=== PATIENT | male | born 1975 | race Two or more races ===

== ENCOUNTER 2022-01-13 12:25 | Inpatient (IN) ==
[2022-01-13 14:57] LABS: BASOPHILS % (AUTO) 0.3 % (0.2-1.0); EOSINOPHILS # (AUTO) 0.1 x10^3/uL (0.0-0.2); EOSINOPHILS % (AUTO) 0.9 % (0.9-2.9); HEMATOCRIT 38.5 % (42.0-54.0); HEMOGLOBIN 13.4 g/dL (13.5-18.0); LYMPHOCYTES % (AUTO) 6.6 % (21.0-51.0); MEAN CORPUSCULAR HEMOGLOBIN 31.6 pg (27.0-34.0); MEAN CORPUSCULAR HGB CONC 34.9 g/dL (33.0-35.0); MEAN CORPUSCULAR VOLUME 90.7 fL (80.0-100.0); MEAN PLATELET VOLUME 10.3 fL (7.4-11.0); MONOCYTES # (AUTO) 1.5 x10^3/uL (0.3-0.8); MONOCYTES % (AUTO) 9.8 % (0.0-13.0); NEUTROPHILS # (AUTO) 12.5 x10^3/uL (2.2-4.8); NEUTROPHILS % (AUTO) 82.4 % (42.0-75.0); RED BLOOD COUNT 4.25 X10^6/uL (4.7-6.0); RED CELL DISTRIBUTION WIDTH 12.6 % (11.6-16.5); WHITE BLOOD COUNT 15.2 X10^3/uL (3.6-10.0)
[2022-01-13 15:09] LABS: ALANINE AMINOTRANSFERASE 38 Units/L (12-78); ALBUMIN 3.1 g/dL (3.4-5.0); ALKALINE PHOSPHATASE 106 Units/L (46-116); ASPARTATE AMINO TRANSFERASE 23 Units/L (15-37); BLOOD UREA NITROGEN 12 mg/dL (7-18); CALCIUM 8.3 mg/dL (8.5-10.1); CARBON DIOXIDE 25.5 mmol/L (21-32); CHLORIDE 98 mmol/L (98-107); CREATININE 1.06 mg/dL (0.70-1.30); SODIUM 134 mmol/L (136-145); TOTAL PROTEIN 7.5 g/dL (6.4-8.2); eGFR NON BLACK RACES > 60 (>60)
[2022-01-13] MEDS ORDERED: NS 1,000 ML IV 1,000 ML ONE (15:17)
[2022-01-13] MEDS: ROCEPHIN VIAL 1 GRAM 1 G in NS 100 ML IV 100 ML IV SCH (15:38)
[2022-01-13] MEDS: MORPHINE SULFATE INJ 2 MG INJ IVP PRN (15:39)
[2022-01-13] MEDS: CIPRO IV 400 MG PREMIX* 400 MG/200 ML IV.SOLN. IV SCH ×2 (16:05→21:35)
[2022-01-13] MEDS: TORADOL 15 MG VIAL IVP PRN (17:26)
--- NOTE | 2022-01-13 18:12 | DR.H&P ---
H&P - History & Physical for Day of: H&P Date: 01/13/22 - Chief Complaint Chief Complaint: FEVER, PAIN, REDNESS SWELLING TO BUTTOCKS - History of Present Illness History of Present Illness: PT IS 46 HM ADMITTED WITH CELLULITIS TO PERIANAL TISSUE. PT STARTED WITH PAIN TO BUTTOCKS ON MONDAY WITH INCREASED REDNESS AND PAIN. PT WAS SEEN IN OFFICE ON MONDAY AND RECEIVED IM ROCEPHIN AND PO CIPRO. PT WAS SEEN IN ER DUE TO FEVER >102 AND WAS GIVEN RX FOR ADDITIONAL ANTIBIOTICS AND NORCO FOR PAIN, WHICH HAS NOT IMPROVED SYMPTOMS. PT HAS NO PMH OF HTN, DM OR CAD. PT ADMITTED FOR TREATMENT OF ACUTE ILLNESS AND SURGICAL CONSULT. - Past Medical History Past Medical History: denies: Coronary Artery Disease, Diabetes, Hypertension - Past Surgical History Surgical History: Ortho Surgery, Other - Family History Family Medical History: Diabetes Mellitus, Hypertension - Social History Does patient currently use any type of tobacco product: Yes Have you used tobacco products in the last 12 months: Yes Type of Tobacco Use: Cigarettes Does any household member use tobacco: Yes Alcohol Use: DAILY Drug Use: None - Medications Home Medications: vancomycin Allergy (Intermediate, Verified 06/19/18 23:02) RASH CONTINUE taking the following medications acetaminophen-codeine [Tylenol-Codeine #3] 1 tab PO Q6HR PRN 01/13/22 [History] ciprofloxacin HCl [Cipro] 500 mg PO BID 01/13/22 [History] sulfamethoxazole-trimethoprim [Bactrim DS] 1 tab PO BID 01/13/22 [History] - Review of Systems Constitutional: Fever Eyes: No Symptoms Reported ENT: No Symptoms Reported Respiratory: No Symptoms Reported Cardiovascular: No Symptoms Reported Gastrointestinal: Nausea Genitourinary: No Symptoms Reported Musculoskeletal: Back Pain Skin: Wound Neurological: No Symptoms Reported - Physical Exam Vital Signs: Temperature 100.3 F Pulse Rate [Left] 108 Respiratory Rate 20 Blood Pressure [Left Arm] 99/54 Blood Pressure [Right Arm] 105/61 Blood Pressure 131/69 O2 Sat by Pulse Oximetry 96 Oriented: Normal Eyes: Normal Ear: Normal Nose: Normal Throat: Normal Respiratory: Clear Throughout Cardiovascular: Normal : Normal Auscultation: Bowel Sounds: Normal Palpation: Normal Tenderness: Normal Skin: Red, Tender (DIFFUSE UPPER BUTTOCKS, PERIANAL), Hot Musculoskeletal: Back:Lumbar Psychiatric: Normal Mood Description: Calm Speech Pattern: Clear, Appropriate - Assessment/Plan (1) Perirectal cellulitis Status: Acute Plan: ADMIT, IV ATBX, BLOOD CULTURES OBTAINED IN ER ON 01/12. ADMISSION LABS, IV ATBX/IV HYDRATION/PAIN CONTROL. COVID SWAB ON ADMISSION. CT ABD/PELVIS. SURGICAL CONSULT (2) Cellulitis of buttock Status: Acute (3) Fever Qualifiers: Fever type: unspecified Qualified Code(s): R50.9 - Fever, unspecified Status: Acute - Allergies Allergies/Adverse Reactions: Allergies Allergy/AdvReac Type Severity Reaction Status Date / Time vancomycin Allergy Intermediate RASH Verified 06/19/18 23:02
[2022-01-13 18:17] LABS: BILIRUBIN,URINE NEGATIVE (NEGATIVE); BLOOD/HEMOGLOBIN,URINE 2+ (NEGATIVE); GLUCOSE, URINE NEGATIVE (NEGATIVE); KETONES,URINE 1+ (NEGATIVE); LEUKOCYTE ESTERASE ,URINE NEGATIVE (NEGATIVE); NITRITES,URINE NEGATIVE (NEGATIVE); PROTEIN,URINE 1+ (NEGATIVE); UROBILINOGEN,URINE NORMAL (NORMAL)
[2022-01-13 18:23] LABS: APPEARANCE,URINE CLEAR (CLEAR); COLOR,URINE DARK YELLOW (YELLOW)
[2022-01-13 18:30] LABS: BACTERIA,URINE TRACE /HPF (NEGATIVE); RBC,URINE 0-2 /HPF (0-3); SQUAMOUS EPITHELIAL CELL,UR RARE /HPF (NEGATIVE)
--- NOTE | 2022-01-13 19:27 | CT ---
EXAM: CT ABDOMEN AND PELVIS WITH INTRAVENOUS CONTRASTHISTORY: Rectal abscess. Fever.TECHNIQUE: Spiral axial CT images are obtained through the abdomen and pelvis without the administration of oral contrast and with the administration of intravenous contrast. Additional coronal and sagittal reformatted images are reconstructed.DOSIMETRY: Total DLP 841.9 mGycm; CTDI 43.8 mGyCOMPARISON: None available.FINDINGS:GASTROINTESTINAL TRACT: Nonspecific, fluid-filled, nondilated stomach, small bowel loops, and right-sided large bowel loops; presumed gastroenteritis with impending diarrhea. Clinical correlation is advised. There is no evidence for bowel herniation, bowel obstruction, colitis or diverticulitis. A normal-appearing appendix is seen. There is a large (approximately 9 cm CC by 6.9 cm AP by 7 cm transverse) multiloculated posterior and bilateral perianal abscess extending to the medial buttock fascia.GENITOURINARY SYSTEM: There is an approximately 1.3 cm left lower pole renal cyst. The kidneys are otherwise unremarkable. There is no ureteral calculus or stigmata of obstructive uropathy. The urinary bladder, seminal vesicles, prostate gland appear grossly unremarkable for a non-dedicated exam.CT ABDOMEN: Aortoiliac atherosclerotic disease, without aneurysm formation or dissection.The liver, spleen, pancreas, adrenal glands, gallbladder, and inferior vena cava are within normal limits for a CT scan. There is no intra-abdominal or retroperitoneal lymphadenopathy, free fluid, or free air seen. No abdominal herniation is noted.CT PELVIS: No pelvic sidewall or inguinal lymphadenopathy is seen. No inguinal herniation is noted. No free fluid or free air is seen.BONES AND JOINTS: The visualized bony structures are within normal limits.LUNG BASES: The lung bases are clear.IMPRESSION:1. Large (approximately 9 cm CC by 6.9 cm AP by 7 cm transverse) multiloculated posterior and bilateral perianal abscess extending to the medial buttock fascia.2. Nonspecific, fluid-filled, nondilated stomach, small bowel loops, and right-sided large bowel loops; presumed gastroenteritis with impending diarrhea. Clinical correlation is advised.3. No evidence for acute appendicitis, bowel herniation/obstruction, colitis or diverticulitis seen.4. No intraperitoneal or retroperitoneal free fluid, free air, mass lesions, or lymphadenopathy seen.5. No evidence for pyelonephritis, renal stone disease or obstructive uropathy.Electronically signed by: Shahida Bellamy (Jan 13, 2022:25:25)
--- NOTE | 2022-01-13 20:41 | RAD ---
HISTORYPREOP RECTAL Relevant Clinical InformationSTUDYCHEST, 1 VIEWCOMPARISONFINDINGSThe trachea is midline. The cardiac silhouette is unremarkable. The lungs are clear without focal infiltrate or effusion. The bony thorax is unremarkable.IMPRESSIONNo acute cardiopulmonary findings .Electronically signed by: Joseph Terry (Jan 13, 2022 20:39:38)
[2022-01-13] MEDS ORDERED: TYLENOL 325 MG TAB PO PRN (23:49)
[2022-01-14] MEDS: MORPHINE SULFATE INJ 2 MG INJ IVP PRN (03:06)
[2022-01-14] MEDS: NS 1,000 ML IV 1,000 ML IV SCH ×4 (03:19→18:22)
[2022-01-14 06:35] LABS: BASOPHILS # (AUTO) 0.1 X10^3/uL (0.0-0.1); BASOPHILS % (AUTO) 0.6 % (0.2-1.0); EOSINOPHILS # (AUTO) 0.2 x10^3/uL (0.0-0.2); EOSINOPHILS % (AUTO) 1.2 % (0.9-2.9); HEMATOCRIT 36.1 % (42.0-54.0); HEMOGLOBIN 12.5 g/dL (13.5-18.0); LYMPHOCYTES # (AUTO) 1.4 X10^3/uL (1.3-2.9); LYMPHOCYTES % (AUTO) 10.1 % (21.0-51.0); MEAN CORPUSCULAR HEMOGLOBIN 31.3 pg (27.0-34.0); MEAN CORPUSCULAR HGB CONC 34.5 g/dL (33.0-35.0); MEAN CORPUSCULAR VOLUME 90.6 fL (80.0-100.0); MEAN PLATELET VOLUME 10.8 fL (7.4-11.0); MONOCYTES # (AUTO) 1.8 x10^3/uL (0.3-0.8); MONOCYTES % (AUTO) 12.9 % (0.0-13.0); NEUTROPHILS # (AUTO) 10.2 x10^3/uL (2.2-4.8); NEUTROPHILS % (AUTO) 75.2 % (42.0-75.0); RED BLOOD COUNT 3.99 X10^6/uL (4.7-6.0); RED CELL DISTRIBUTION WIDTH 12.5 % (11.6-16.5); WHITE BLOOD COUNT 13.6 X10^3/uL (3.6-10.0)
[2022-01-14 06:50] LABS: LACTIC ACID 0.8 mmol/L (0.4-2.0)
[2022-01-14 06:53] LABS: ALANINE AMINOTRANSFERASE 32 Units/L (12-78); ALBUMIN 2.7 g/dL (3.4-5.0); ALKALINE PHOSPHATASE 96 Units/L (46-116); ASPARTATE AMINO TRANSFERASE 23 Units/L (15-37); BLOOD UREA NITROGEN 10 mg/dL (7-18); CALCIUM 8.3 mg/dL (8.5-10.1); CARBON DIOXIDE 24.1 mmol/L (21-32); CHLORIDE 100 mmol/L (98-107); COR CA(FOR HYPOALB) 9.3 mg/dL (8.5-10.1); CREATININE 1.01 mg/dL (0.70-1.30); SODIUM 134 mmol/L (136-145); TOTAL PROTEIN 6.7 g/dL (6.4-8.2); eGFR NON BLACK RACES > 60 (>60)
[2022-01-14] MEDS: CIPRO IV 400 MG PREMIX* 400 MG/200 ML IV.SOLN. IV SCH (07:59)
[2022-01-14] MEDS: TORADOL 15 MG VIAL IVP PRN (08:00)
[2022-01-14] MEDS: ROCEPHIN VIAL 1 GRAM 1 G in NS 100 ML IV 100 ML IV SCH (10:15)
[2022-01-14] MEDS ORDERED: MORPHINE SULFATE INJ 4 MG ONE (10:19)
[2022-01-14] MEDS ORDERED: MORPHINE SULFATE INJ 4 MG IVP PRN (10:33)
--- NOTE | 2022-01-14 14:49 | PCM.PROG ---
Progress Note - Subjective Subjective: Patient is a 46 year old male who was admitted due to cellulitis of buttocks. Extensive area of cellulitis involving both sides of buttocks. Patient states he has had this happen once before in the past. Patient reports uncontrolled pain. States current pain medication regimen is not helping. No other concerns at present. Spouse at bedside. - Past Medical Family Social History Allergies: Allergies vancomycin Allergy (Intermediate, Verified 06/19/18 23:02) RASH - Review of Systems ROS: No change since H&P - Vital Signs and I&O's Vital Signs: Temperature 98.1 F Pulse Rate [Left] 94 Respiratory Rate 20 Blood Pressure [Left Arm] 108/62 Blood Pressure [Right Arm] 105/61 Blood Pressure 131/69 O2 Sat by Pulse Oximetry 98 Intake and Output: Intake & Output 01/11/22 01/12/22 01/13/22 01/14/22 23:59 23:59 23:59 23:59 Intake Total 680 / 680 1218 / 1218 Output Total Balance 679 / 679 1218 / 1218 - Physical Exam Oriented: Normal, Time, Person, Place Eyes: Normal Ear: Normal Nose: Normal Throat: Normal Respiratory: Normal Cardiovascular: Normal : Normal Auscultation: Bowel Sounds: Normal Palpation: Normal Tenderness: Normal Skin: Red, Tender (DIFFUSE UPPER BUTTOCKS, PERIANAL), Hot Musculoskeletal: Back:Lumbar Psychiatric: Normal Mood Description: Calm Affect: Normal Speech Pattern: Clear, Appropriate - Laboratory and Diagnostics Result Diagrams: 01/14/22 05:28 01/14/22 05:28 Labs: Laboratory WBC 13.6 X10^3/uL (3.6-10.0) H 01/14/22 05:28 RBC 3.99 X10^6/uL (4.7-6.0) L 01/14/22 05:28 Hgb 12.5 g/dL (13.5-18.0) L 01/14/22 05:28 Hct 36.1 % (42.0-54.0) L 01/14/22 05:28 MCV 90.6 fL (80.0-100.0) 01/14/22 05:28 MCH 31.3 pg (27.0-34.0) 01/14/22 05:28 MCHC 34.5 g/dL (33.0-35.0) 01/14/22 05: RDW 12.5 % (11.6-16.5) 01/14/22 05:28 Plt Count 193 X10^3/uL (150.0-450.0) 01/14/22 05:28 MPV 10.8 fL (7.4-11.0) 01/14/22 05:28 Neut % (Auto) 75.2 % (42.0-75.0) H 01/14/22 05:28 Lymph % (Auto) 10.1 % (21.0-51.0) L 01/14/22 05:28 [place] % (Auto) 12.9 % (0.0-13.0) 01/14/22 05: Eos % (Auto) 1.2 % (0.9-2.9) 01/14/22 05: Baso % (Auto) 0.6 % (0.2-1.0) 01/14/22 05:28 Neut # (Auto) 10.2 x10^3/uL (2.2-4.8) H 01/14/22 05:28 Lymph # (Auto) 1.4 X10^3/uL (1.3-2.9) 01/14/22 05:28 [place] # (Auto) 1.8 x10^3/uL (0.3-0.8) H 01/14/22 05:28 Eos # (Auto) 0.2 x10^3/uL (0.0-0.2) 01/14/22 05:28 Baso # (Auto) 0.1 X10^3/uL (0.0-0.1) 01/14/22 05:28 Absolute Nucleated RBC 0.0 /100WBC 01/14/22 05:28 Sodium 134 mmol/L (136-145) L 01/14/22 05:28 Corrected Sodium TNP 01/14/22 05: Potassium 4.2 mmol/L (3.5-5.1) 01/14/22 05: Chloride 100 mmol/L (98-107) 01/14/22 05:28 Carbon Dioxide 24.1 mmol/L (21-32) 01/14/22 05:28 BUN 10 mg/dL (7-18) 01/14/22 05:28 Creatinine 1.01 mg/dL (0.70-1.30) 01/14/22 05:28 Est GFR (MDRD) Af Amer > 60 (>60) 01/14/22 05:28 Est GFR (MDRD) Non-Af > 60 (>60) 01/14/22 05:28 Glucose 93 mg/dL (65-99) 01/14/22 05:28 Lactic Acid 0.8 mmol/L (0.4-2.0) 01/14/22 05:28 Calcium 8.3 mg/dL (8.5-10.1) L 01/14/22 05:28 Corrected Calcium 9.3 mg/dL (8.5-10.1) 01/14/22 05:28 Total Bilirubin 0.50 mg/dL (0.2-1.0) 01/14/22 05:28 AST 23 Units/L (15-37) 01/14/22 05:28 ALT 32 Units/L (12-78) 01/14/22 05:28 Alkaline Phosphatase 96 Units/L (46-116) 01/14/22 05:28 C-Reactive Protein 310.10 mg/L (0-3.0) H 01/13/22 14:16 Total Protein 6.7 g/dL (6.4-8.2) 01/14/22 05:28 Albumin 2.7 g/dL (3.4-5.0) L 01/14/22 05:28 Globulin 4.0 g/dL (2.5-4.5) 01/14/22 05:28 Albumin/Globulin Ratio 0.7 Ratio (1.1-2.1) L 01/14/22 05:28 Specimen Type Clean catch urine 01/13/22 18:05 Urine Color Dark yellow (YELLOW) 01/13/22 18:05 Urine Appearance Clear (CLEAR) 01/13/22 18:05 Urine pH 6.0 (5.0 - 8.0) 01/13/22 18:05 Ur Specific [place] 1.015 (1.000-1.030) 01/13/22 18:05 Urine Protein 1+ (NEGATIVE) 01/13/22 18:05 Urine Glucose (UA) Negative (NEGATIVE) 01/13/22 18:05 Urine Ketones 1+ (NEGATIVE) 01/13/22 18:05 Urine Occult Blood 2+ (NEGATIVE) 01/13/22 18:05 Urine Nitrite Negative (NEGATIVE) 01/13/22 18:05 Urine Bilirubin Negative (NEGATIVE) 01/13/22 18:05 Urine Urobilinogen Normal (NORMAL) 01/13/22 18:05 Ur Leukocyte Esterase Negative (NEGATIVE) 01/13/22 18:05 Urine RBC 0-2 /HPF (0-3) 01/13/22 18:05 Urine WBC None seen /HPF (0-5) 01/13/22 18:05 Ur Squamous Epith Cells Rare /HPF (NEGATIVE) 01/13/22 18:05 Urine Bacteria Trace /HPF (NEGATIVE) 01/13/22 18:05 Ur Culture Indicated? No/not indicated 01/13/22 18:05 SARS CoV-2 RNA Rapid [place] Negative (NEGATIVE) 01/13/22 14:00 - Plan (1) Intractable pain Status: Acute (2) Perirectal cellulitis Status: Acute Plan: IV ATBX, CULTURES PENDING. IV ATBX/IV HYDRATION/PAIN CONTROL. SURGICAL CONSULT (3) Cellulitis of buttock Status: Acute (4) Fever Status: Acute Qualifiers: Fever type: unspecified Qualified Code(s): R50.9 - Fever, unspecified Plan: MONITOR FEVER
[2022-01-14] MEDS: MORPHINE SULFATE INJ 4 MG IVP PRN ×3 (15:00→22:56)
[2022-01-14] MEDS ORDERED: MARCAINE/EPINEPHRINE ONE (15:13)
[2022-01-14] MEDS ORDERED: BETADINE SOLN ONE ×3 (15:13→17:07)
[2022-01-14] MEDS ORDERED: STERILE WATER IRRIGATION IR ONE (15:32)
[2022-01-14] MEDS ORDERED: ANCEF VIAL 1 GRAM ONE ×2 (15:34→16:06)
[2022-01-14] MEDS ORDERED: NS 100 ML IV 100 ML ONE (15:35)
[2022-01-14] MEDS ORDERED: DIPRIVAN VIAL 0 ML ONE (15:56)
[2022-01-14] MEDS ORDERED: DIPRIVAN VIAL 20 ML ONE (15:56)
[2022-01-14] MEDS ORDERED: KETAMINE 50 MG/5 ML-NACL SYRNG ONE (15:56)
[2022-01-14] MEDS ORDERED: FENTANYL VIAL INJ 100 mcg ONE (15:56)
[2022-01-14] MEDS ORDERED: VERSED ONE (15:56)
[2022-01-14] MEDS ORDERED: OFIRMEV IV 1000 MG VIAL 1,000 MG/100 ML VIAL IV PRN (16:59)
[2022-01-14] MEDS: FLAGYL IV PREMIX 500 MG BAG 500 MG/100 ML BAG IV SCH (22:57)
[2022-01-15] MEDS: ZOSYN VIAL 4.5 GRAMS 4.5 G in NS 100 ML IV 100 ML IV SCH ×4 (00:03→22:01)
[2022-01-15] MEDS: NS 1,000 ML IV 1,000 ML IV SCH ×4 (04:43→19:22)
[2022-01-15] MEDS: MORPHINE SULFATE INJ 4 MG IVP PRN ×3 (04:57→14:21)
[2022-01-15] MEDS: FLAGYL IV PREMIX 500 MG BAG 500 MG/100 ML BAG IV SCH ×3 (05:21→21:05)
[2022-01-15 06:56] LABS: BASOPHILS # (AUTO) 0.1 X10^3/uL (0.0-0.1); BASOPHILS % (AUTO) 1.1 % (0.2-1.0); EOSINOPHILS # (AUTO) 0.3 x10^3/uL (0.0-0.2); EOSINOPHILS % (AUTO) 2.4 % (0.9-2.9); HEMATOCRIT 36.1 % (42.0-54.0); HEMOGLOBIN 12.7 g/dL (13.5-18.0); LYMPHOCYTES # (AUTO) 1.4 X10^3/uL (1.3-2.9); LYMPHOCYTES % (AUTO) 13.2 % (21.0-51.0); MEAN CORPUSCULAR HEMOGLOBIN 31.8 pg (27.0-34.0); MEAN CORPUSCULAR HGB CONC 35.1 g/dL (33.0-35.0); MEAN CORPUSCULAR VOLUME 90.4 fL (80.0-100.0); MEAN PLATELET VOLUME 10.1 fL (7.4-11.0); MONOCYTES # (AUTO) 1.4 x10^3/uL (0.3-0.8); MONOCYTES % (AUTO) 12.9 % (0.0-13.0); NEUTROPHILS # (AUTO) 7.5 x10^3/uL (2.2-4.8); NEUTROPHILS % (AUTO) 70.4 % (42.0-75.0); RED BLOOD COUNT 3.99 X10^6/uL (4.7-6.0); RED CELL DISTRIBUTION WIDTH 12.5 % (11.6-16.5); WHITE BLOOD COUNT 10.6 X10^3/uL (3.6-10.0)
[2022-01-15 07:06] LABS: ALANINE AMINOTRANSFERASE 32 Units/L (12-78); ALBUMIN 2.5 g/dL (3.4-5.0); ALKALINE PHOSPHATASE 100 Units/L (46-116); ASPARTATE AMINO TRANSFERASE 26 Units/L (15-37); BLOOD UREA NITROGEN 8 mg/dL (7-18); CALCIUM 8.3 mg/dL (8.5-10.1); CARBON DIOXIDE 23.3 mmol/L (21-32); CHLORIDE 104 mmol/L (98-107); COR CA(FOR HYPOALB) 9.5 mg/dL (8.5-10.1); SODIUM 136 mmol/L (136-145); TOTAL PROTEIN 6.5 g/dL (6.4-8.2); eGFR NON BLACK RACES > 60 (>60)
--- NOTE | 2022-01-15 09:39 | DR.PROGNOT ---
Hospital Progress Notes - Progress Note for Day of: Progress Note Date: 01/15/22 - Chief Complaint Chief Complaint: feeling better after I&D . temp is down . WBC 10.6. CRP 206 . - Past Medical Family Social History Past Med/Fam/Surg Hx: No changes since H&P Allergies: Allergies vancomycin Allergy (Intermediate, Verified 06/19/18 23:02) RASH - Review Of Systems ROS: No change since H&P - Vital Signs Vital Signs: Temperature 98.8 F Pulse Rate [Left] 94 Respiratory Rate 20 Blood Pressure [Left Arm] 120/74 Blood Pressure [Right Arm] 105/61 Blood Pressure 131/69 O2 Sat by Pulse Oximetry 99 - Physical Exam Oriented: Normal, Time, Person, Place Eyes: Normal Ear: Normal Nose: Normal Throat: Normal Respiratory: Normal Cardiovascular: Normal : Normal GI:Auscultation: Normal GI:Palpation: Normal GI: Tenderness: Normal Skin: Red, Tender (still having induration and tenderness around the perianal abscess .), Hot Musculoskeletal: Back:Lumbar Psychiatric: Normal Mood Description: Calm Affect: Normal Speech Pattern: Clear, Appropriate - Laboratory and Diagnostics Result Diagrams: 01/15/22 06:09 01/15/22 06:09 Labs: 01/14/22 16:21 Buttock Wound Gram Stain - Final 01/14/22 16:21 Buttock Wound Culture - Preliminary Laboratory WBC 10.6 X10^3/uL (3.6-10.0) H 01/15/22 06:09 RBC 3.99 X10^6/uL (4.7-6.0) L 01/15/22 06:09 Hgb 12.7 g/dL (13.5-18.0) L 01/15/22 06:09 Hct 36.1 % (42.0-54.0) L 01/15/22 06:09 MCV 90.4 fL (80.0-100.0) 01/15/22 06:09 MCH 31.8 pg (27.0-34.0) 01/15/22 06:09 MCHC 35.1 g/dL (33.0-35.0) H 01/15/22 06:09 RDW 12.5 % (11.6-16.5) 01/15/22 06:09 Plt Count 201 X10^3/uL (150.0-450.0) 01/15/22 06:09 MPV 10.1 fL (7.4-11.0) 01/15/22 06:09 Neut % (Auto) 70.4 % (42.0-75.0) 01/15/22 06:09 Lymph % (Auto) 13.2 % (21.0-51.0) L 01/15/22 06:09 [place] % (Auto) 12.9 % (0.0-13.0) 01/15/22 06:09 Eos % (Auto) 2.4 % (0.9-2.9) 01/15/22 06:09 Baso % (Auto) 1.1 % (0.2-1.0) H 01/15/22 06:09 Neut # (Auto) 7.5 x10^3/uL (2.2-4.8) H 01/15/22 06:09 Lymph # (Auto) 1.4 X10^3/uL (1.3-2.9) 01/15/22 06:09 [place] # (Auto) 1.4 x10^3/uL (0.3-0.8) H 01/15/22 06:09 Eos # (Auto) 0.3 x10^3/uL (0.0-0.2) H 01/15/22 06:09 Baso # (Auto) 0.1 X10^3/uL (0.0-0.1) 01/15/22 06:09 Absolute Nucleated RBC 0.1 /100WBC 01/15/22 06:09 Sodium 136 mmol/L (136-145) 01/15/22 06:09 Corrected Sodium TNP 01/15/22 06:09 Potassium 4.0 mmol/L (3.5-5.1) 01/15/22 06:09 Chloride 104 mmol/L (98-107) 01/15/22 06:09 Carbon Dioxide 23.3 mmol/L (21-32) 01/15/22 06:09 BUN 8 mg/dL (7-18) 01/15/22 06:09 Creatinine 0.90 mg/dL (0.70-1.30) 01/15/22 06:09 Est GFR (MDRD) Af Amer > 60 (>60) 01/15/22 06:09 Est GFR (MDRD) Non-Af > 60 (>60) 01/15/22 06:09 Glucose 106 mg/dL (65-99) H 01/15/22 06:09 Lactic Acid 0.8 mmol/L (0.4-2.0) 01/14/22 05:28 Calcium 8.3 mg/dL (8.5-10.1) L 01/15/22 06:09 Corrected Calcium 9.5 mg/dL (8.5-10.1) 01/15/22 06:09 Total Bilirubin 0.30 mg/dL (0.2-1.0) 01/15/22 06:09 AST 26 Units/L (15-37) 01/15/22 06:09 ALT 32 Units/L (12-78) 01/15/22 06:09 Alkaline Phosphatase 100 Units/L (46-116) 01/15/22 06:09 C-Reactive Protein 206.20 mg/L (0-3.0) H 01/15/22 06:09 Total Protein 6.5 g/dL (6.4-8.2) 01/15/22 06:09 Albumin 2.5 g/dL (3.4-5.0) L 01/15/22 06:09 Globulin 4.0 g/dL (2.5-4.5) 01/15/22 06:09 Albumin/Globulin Ratio 0.6 Ratio (1.1-2.1) L 01/15/22 06:09 Specimen Type Clean catch urine 01/13/22 18:05 Urine Color Dark yellow (YELLOW) 01/13/22 18:05 Urine Appearance Clear (CLEAR) 01/13/22 18:05 Urine pH 6.0 (5.0 - 8.0) 01/13/22 18:05 Ur Specific [place] 1.015 (1.000-1.030) 01/13/22 18:05 Urine Protein 1+ (NEGATIVE) 01/13/22 18:05 Urine Glucose (UA) Negative (NEGATIVE) 01/13/22 18:05 Urine Ketones 1+ (NEGATIVE) 01/13/22 18:05 Urine Occult Blood 2+ (NEGATIVE) 01/13/22 18:05 Urine Nitrite Negative (NEGATIVE) 01/13/22 18:05 Urine Bilirubin Negative (NEGATIVE) 01/13/22 18:05 Urine Urobilinogen Normal (NORMAL) 01/13/22 18:05 Ur Leukocyte Esterase Negative (NEGATIVE) 01/13/22 18:05 Urine RBC 0-2 /HPF (0-3) 01/13/22 18:05 Urine WBC None seen /HPF (0-5) 01/13/22 18:05 Ur Squamous Epith Cells Rare /HPF (NEGATIVE) 01/13/22 18:05 Urine Bacteria Trace /HPF (NEGATIVE) 01/13/22 18:05 Ur Culture Indicated? No/not indicated 01/13/22 18:05 SARS CoV-2 RNA Rapid [place] Negative (NEGATIVE) 01/13/22 14:00 - Assessment and Plan 1: large perianal abscess . s/p I&D . recurrent abscess . same IV ABT ,awaiting C&S. local care with sitz bath . future colonoscopy - Problem Patient Problems: Patient Problems Perirectal cellulitis (Acute) K61.1 Cellulitis of buttock (Acute) L03.317 Fever (Acute) R50.9 Intractable pain (Acute) R52
--- NOTE | 2022-01-15 18:03 | PCM.PROG ---
Progress Note - Progress Note for Day of Date of Exam: 01/15/22 - Subjective Subjective: IS A 46 YEAR OLD PATIENT OF . HE WAS ADMITTED FOR CELLULITIS AND ABSCESS TO PERIANAL TISSUE. PERFORMED I&D OF WOUND YESTERDAY. HE WAS TREATED WITH ROCEPHIN AND CIPRO PRIOR TO HOSPITALIZATION. PMH INCLUDES HTN, DM, CAD. TODAY, HE IS ALERT AND ORIENTED, LYING IN BED ON MORNING ROUNDS. HE CONTINUES WITH PAIN TO PERIANAL AREA. ON EXAMINATION, HEART IS REGULAR IN RATE AND RHYTHM. BILATERAL LUNGS CLEAR TO AUSCULTATION. ABDOMEN IS ROUND, SOFT, AND NON-TENDER WITH NORMAL BOWEL SOUNDS NOTED IN ALL QUADRANTS. THERE IS EXTENSIVE CELLULITIS INVOLVING BOTH SIDES OF THE BUTTOCKS. THERE IS INDURATION AND TENDERNESS AROUND THE PERIANAL AREA. HE IS CURRENTLY RECEIVING NORMAL SALINE AT 100 ML/HR, ZOSYN 4.5G IV TID, FLAGYL 500MG IV Q8, MORPHINE 4MG IV Q4H PRN, AND TORADOL 15MG IV Q8H PRN. WE WILL CONTINUE WITH CURRENT PLAN OF CARE TODAY. OTHERWISE, WE PLAN TO FOLLOW UP WITH AM LABS AND CONTINUE TO MONITOR. TIME SPENT ON CLINICAL ASSESSMENT, REVIEWING LABS AND IMAGING, DECISION MAKING, AND DOCUMENTATION WAS GREATER THAN 45 MINUTES. - Past Medical Family Social History Past Med/Fam/Surg Hx: No changes since H&P Allergies: Allergies vancomycin Allergy (Intermediate, Verified 06/19/18 23:02) RASH - Review of Systems ROS: No change since H&P - Vital Signs and I&O's Vital Signs: Temperature 99.4 F Pulse Rate [Left] 91 Respiratory Rate 20 Blood Pressure [Left Arm] 103/64 Blood Pressure [Right Arm] 105/61 Blood Pressure 131/69 O2 Sat by Pulse Oximetry 98 Intake and Output: Intake & Output 01/13/22 01/14/22 01/15/22 01/16/22 11:59 11:59 11:59 11:59 Intake Total 1898 / 1898 3411 / 3411 1140 / 1140 Output Total 995 / 995 Balance 1897 / 1897 2416 / 2416 1140 / 1140 - Physical Exam Oriented: Normal, Time, Person, Place Eyes: Normal Ear: Normal Nose: Normal Throat: Normal Respiratory: Normal Cardiovascular: Normal : Normal Auscultation: Bowel Sounds: Normal Palpation: Normal Tenderness: Normal Skin: Red, Tender (still having induration and tenderness around the perianal abscess .), Hot Musculoskeletal: Back:Lumbar Psychiatric: Normal Mood Description: Calm Affect: Normal Speech Pattern: Clear, Appropriate - Laboratory and Diagnostics Result Diagrams: 01/15/22 06:09 01/15/22 06:09 Labs: 01/14/22 16:21 Buttock Wound Gram Stain - Final 01/14/22 16:21 Buttock Wound Culture - Preliminary Laboratory WBC 10.6 X10^3/uL (3.6-10.0) H 01/15/22 06:09 RBC 3.99 X10^6/uL (4.7-6.0) L 01/15/22 06:09 Hgb 12.7 g/dL (13.5-18.0) L 01/15/22 06:09 Hct 36.1 % (42.0-54.0) L 01/15/22 06:09 MCV 90.4 fL (80.0-100.0) 01/15/22 06:09 MCH 31.8 pg (27.0-34.0) 01/15/22 06:09 MCHC 35.1 g/dL (33.0-35.0) H 01/15/22 06:09 RDW 12.5 % (11.6-16.5) 01/15/22 06:09 Plt Count 201 X10^3/uL (150.0-450.0) 01/15/22 06:09 MPV 10.1 fL (7.4-11.0) 01/15/22 06:09 Neut % (Auto) 70.4 % (42.0-75.0) 01/15/22 06:09 Lymph % (Auto) 13.2 % (21.0-51.0) L 01/15/22 06:09 [place] % (Auto) 12.9 % (0.0-13.0) 01/15/22 06:09 Eos % (Auto) 2.4 % (0.9-2.9) 01/15/22 06:09 Baso % (Auto) 1.1 % (0.2-1.0) H 01/15/22 06:09 Neut # (Auto) 7.5 x10^3/uL (2.2-4.8) H 01/15/22 06:09 Lymph # (Auto) 1.4 X10^3/uL (1.3-2.9) 01/15/22 06:09 [place] # (Auto) 1.4 x10^3/uL (0.3-0.8) H 01/15/22 06:09 Eos # (Auto) 0.3 x10^3/uL (0.0-0.2) H 01/15/22 06:09 Baso # (Auto) 0.1 X10^3/uL (0.0-0.1) 01/15/22 06:09 Absolute Nucleated RBC 0.1 /100WBC 01/15/22 06:09 Sodium 136 mmol/L (136-145) 01/15/22 06:09 Corrected Sodium TNP 01/15/22 06:09 Potassium 4.0 mmol/L (3.5-5.1) 01/15/22 06:09 Chloride 104 mmol/L (98-107) 01/15/22 06:09 Carbon Dioxide 23.3 mmol/L (21-32) 01/15/22 06:09 BUN 8 mg/dL (7-18) 01/15/22 06:09 Creatinine 0.90 mg/dL (0.70-1.30) 01/15/22 06:09 Est GFR (MDRD) Af Amer > 60 (>60) 01/15/22 06:09 Est GFR (MDRD) Non-Af > 60 (>60) 01/15/22 06:09 Glucose 106 mg/dL (65-99) H 01/15/22 06:09 Lactic Acid 0.8 mmol/L (0.4-2.0) 01/14/22 05:28 Calcium 8.3 mg/dL (8.5-10.1) L 01/15/22 06:09 Corrected Calcium 9.5 mg/dL (8.5-10.1) 01/15/22 06:09 Total Bilirubin 0.30 mg/dL (0.2-1.0) 01/15/22 06:09 AST 26 Units/L (15-37) 01/15/22 06:09 ALT 32 Units/L (12-78) 01/15/22 06:09 Alkaline Phosphatase 100 Units/L (46-116) 01/15/22 06:09 C-Reactive Protein 206.20 mg/L (0-3.0) H 01/15/22 06:09 Total Protein 6.5 g/dL (6.4-8.2) 01/15/22 06:09 Albumin 2.5 g/dL (3.4-5.0) L 01/15/22 06:09 Globulin 4.0 g/dL (2.5-4.5) 01/15/22 06:09 Albumin/Globulin Ratio 0.6 Ratio (1.1-2.1) L 01/15/22 06:09 Specimen Type Clean catch urine 01/13/22 18:05 Urine Color Dark yellow (YELLOW) 01/13/22 18:05 Urine Appearance Clear (CLEAR) 01/13/22 18:05 Urine pH 6.0 (5.0 - 8.0) 01/13/22 18:05 Ur Specific [place] 1.015 (1.000-1.030) 01/13/22 18:05 Urine Protein 1+ (NEGATIVE) 01/13/22 18:05 Urine Glucose (UA) Negative (NEGATIVE) 01/13/22 18:05 Urine Ketones 1+ (NEGATIVE) 01/13/22 18:05 Urine Occult Blood 2+ (NEGATIVE) 01/13/22 18:05 Urine Nitrite Negative (NEGATIVE) 01/13/22 18:05 Urine Bilirubin Negative (NEGATIVE) 01/13/22 18:05 Urine Urobilinogen Normal (NORMAL) 01/13/22 18:05 Ur Leukocyte Esterase Negative (NEGATIVE) 01/13/22 18:05 Urine RBC 0-2 /HPF (0-3) 01/13/22 18:05 Urine WBC None seen /HPF (0-5) 01/13/22 18:05 Ur Squamous Epith Cells Rare /HPF (NEGATIVE) 01/13/22 18:05 Urine Bacteria Trace /HPF (NEGATIVE) 01/13/22 18:05 Ur Culture Indicated? No/not indicated 01/13/22 18:05 SARS CoV-2 RNA Rapid [place] Negative (NEGATIVE) 01/13/22 14:00
[2022-01-16] MEDS: NS 1,000 ML IV 1,000 ML IV SCH (04:30)
[2022-01-16] MEDS: FLAGYL IV PREMIX 500 MG BAG 500 MG/100 ML BAG IV SCH (05:01)
[2022-01-16] MEDS: ZOSYN VIAL 4.5 GRAMS 4.5 G in NS 100 ML IV 100 ML IV SCH (06:02)
[2022-01-16 06:49] LABS: BASOPHILS # (AUTO) 0.1 X10^3/uL (0.0-0.1); BASOPHILS % (AUTO) 1.1 % (0.2-1.0); EOSINOPHILS # (AUTO) 0.3 x10^3/uL (0.0-0.2); EOSINOPHILS % (AUTO) 3.7 % (0.9-2.9); HEMATOCRIT 38.8 % (42.0-54.0); HEMOGLOBIN 13.4 g/dL (13.5-18.0); LYMPHOCYTES # (AUTO) 1.5 X10^3/uL (1.3-2.9); LYMPHOCYTES % (AUTO) 16.9 % (21.0-51.0); MEAN CORPUSCULAR HEMOGLOBIN 31.4 pg (27.0-34.0); MEAN CORPUSCULAR HGB CONC 34.5 g/dL (33.0-35.0); MEAN PLATELET VOLUME 9.9 fL (7.4-11.0); MONOCYTES % (AUTO) 11.1 % (0.0-13.0); NEUTROPHILS % (AUTO) 67.2 % (42.0-75.0); RED BLOOD COUNT 4.27 X10^6/uL (4.7-6.0); RED CELL DISTRIBUTION WIDTH 12.8 % (11.6-16.5); WHITE BLOOD COUNT 8.9 X10^3/uL (3.6-10.0)
[2022-01-16 07:10] LABS: ALANINE AMINOTRANSFERASE 37 Units/L (12-78); ALBUMIN 2.5 g/dL (3.4-5.0); ALKALINE PHOSPHATASE 102 Units/L (46-116); ASPARTATE AMINO TRANSFERASE 23 Units/L (15-37); BLOOD UREA NITROGEN 11 mg/dL (7-18); CALCIUM 8.5 mg/dL (8.5-10.1); CARBON DIOXIDE 24.7 mmol/L (21-32); CHLORIDE 106 mmol/L (98-107); COR CA(FOR HYPOALB) 9.7 mg/dL (8.5-10.1); CREATININE 0.95 mg/dL (0.70-1.30); SODIUM 139 mmol/L (136-145); TOTAL PROTEIN 6.7 g/dL (6.4-8.2); eGFR NON BLACK RACES > 60 (>60)
[2022-01-16 09:18] VITALS: BP 103/61
--- NOTE | 2022-01-16 09:34 | DR.PROGNOT ---
Hospital Progress Notes - Progress Note for Day of: Progress Note Date: 01/16/22 - Chief Complaint Chief Complaint: feeling better , no significant pain .no drainage ,. temp is down . WBC 10.6 - Past Medical Family Social History Past Med/Fam/Surg Hx: No changes since H&P Allergies: Allergies vancomycin Allergy (Intermediate, Verified 06/19/18 23:02) RASH - Review Of Systems ROS: No change since H&P - Vital Signs Vital Signs: Temperature 98.6 F Pulse Rate [Left] 82 Respiratory Rate 18 Blood Pressure [Left Arm] 103/61 Blood Pressure [Right Arm] 105/61 Blood Pressure 131/69 O2 Sat by Pulse Oximetry 99 - Physical Exam Oriented: Normal, Time, Person, Place Eyes: Normal Ear: Normal Nose: Normal Throat: Normal Respiratory: Normal Cardiovascular: Normal : Normal GI:Auscultation: Normal GI:Palpation: Normal GI: Tenderness: Normal Skin: Red, Tender (the perianal abscess had subsided with residual induration .. no necrosis or cellulitis .. ), Hot Musculoskeletal: Back:Lumbar Psychiatric: Normal Mood Description: Calm Affect: Normal Speech Pattern: Clear, Appropriate - Laboratory and Diagnostics Result Diagrams: 01/16/22 05:56 01/16/22 05:56 Labs: 01/14/22 16:21 Buttock Wound Gram Stain - Final 01/14/22 16:21 Buttock Wound Culture - Preliminary Laboratory WBC 8.9 X10^3/uL (3.6-10.0) 01/16/22 05:56 RBC 4.27 X10^6/uL (4.7-6.0) L 01/16/22 05:56 Hgb 13.4 g/dL (13.5-18.0) L 01/16/22 05:56 Hct 38.8 % (42.0-54.0) L 01/16/22 05:56 MCV 91.0 fL (80.0-100.0) 01/16/22 05:56 MCH 31.4 pg (27.0-34.0) 01/16/22 05:56 MCHC 34.5 g/dL (33.0-35.0) 01/16/22 05:56 RDW 12.8 % (11.6-16.5) 01/16/22 05:56 Plt Count 248 X10^3/uL (150.0-450.0) 01/16/22 05:56 MPV 9.9 fL (7.4-11.0) 01/16/22 05:56 Neut % (Auto) 67.2 % (42.0-75.0) 01/16/22 05:56 Lymph % (Auto) 16.9 % (21.0-51.0) L 01/16/22 05:56 [place] % (Auto) 11.1 % (0.0-13.0) 01/16/22 05:56 Eos % (Auto) 3.7 % (0.9-2.9) H 01/16/22 05:56 Baso % (Auto) 1.1 % (0.2-1.0) H 01/16/22 05:56 Neut # (Auto) 6.0 x10^3/uL (2.2-4.8) H 01/16/22 05:56 Lymph # (Auto) 1.5 X10^3/uL (1.3-2.9) 01/16/22 05:56 [place] # (Auto) 1.0 x10^3/uL (0.3-0.8) H 01/16/22 05:56 Eos # (Auto) 0.3 x10^3/uL (0.0-0.2) H 01/16/22 05:56 Baso # (Auto) 0.1 X10^3/uL (0.0-0.1) 01/16/22 05:56 Absolute Nucleated RBC 0.0 /100WBC 01/16/22 05:56 Sodium 139 mmol/L (136-145) 01/16/22 05:56 Corrected Sodium TNP 01/16/22 05:56 Potassium 4.5 mmol/L (3.5-5.1) 01/16/22 05:56 Chloride 106 mmol/L (98-107) 01/16/22 05:56 Carbon Dioxide 24.7 mmol/L (21-32) 01/16/22 05:56 BUN 11 mg/dL (7-18) 01/16/22 05:56 Creatinine 0.95 mg/dL (0.70-1.30) 01/16/22 05:56 Est GFR (MDRD) Af Amer > 60 (>60) 01/16/22 05:56 Est GFR (MDRD) Non-Af > 60 (>60) 01/16/22 05:56 Glucose 104 mg/dL (65-99) H 01/16/22 05:56 Lactic Acid 0.8 mmol/L (0.4-2.0) 01/14/22 05:28 Calcium 8.5 mg/dL (8.5-10.1) 01/16/22 05:56 Corrected Calcium 9.7 mg/dL (8.5-10.1) 01/16/22 05:56 Total Bilirubin 0.20 mg/dL (0.2-1.0) 01/16/22 05:56 AST 23 Units/L (15-37) 01/16/22 05:56 ALT 37 Units/L (12-78) 01/16/22 05:56 Alkaline Phosphatase 102 Units/L (46-116) 01/16/22 05:56 C-Reactive Protein 126.20 mg/L (0-3.0) H 01/16/22 05:56 Total Protein 6.7 g/dL (6.4-8.2) 01/16/22 05:56 Albumin 2.5 g/dL (3.4-5.0) L 01/16/22 05:56 Globulin 4.2 g/dL (2.5-4.5) 01/16/22 05:56 Albumin/Globulin Ratio 0.6 Ratio (1.1-2.1) L 01/16/22 05:56 Specimen Type Clean catch urine 01/13/22 18:05 Urine Color Dark yellow (YELLOW) 01/13/22 18:05 Urine Appearance Clear (CLEAR) 01/13/22 18:05 Urine pH 6.0 (5.0 - 8.0) 01/13/22 18:05 Ur Specific Barre 1.015 (1.000-1.030) 01/13/22 18:05 Urine Protein 1+ (NEGATIVE) 01/13/22 18:05 Urine Glucose (UA) Negative (NEGATIVE) 01/13/22 18:05 Urine Ketones 1+ (NEGATIVE) 01/13/22 18:05 Urine Occult Blood 2+ (NEGATIVE) 01/13/22 18:05 Urine Nitrite Negative (NEGATIVE) 01/13/22 18:05 Urine Bilirubin Negative (NEGATIVE) 01/13/22 18:05 Urine Urobilinogen Normal (NORMAL) 01/13/22 18:05 Ur Leukocyte Esterase Negative (NEGATIVE) 01/13/22 18:05 Urine RBC 0-2 /HPF (0-3) 01/13/22 18:05 Urine WBC None seen /HPF (0-5) 01/13/22 18:05 Ur Squamous Epith Cells Rare /HPF (NEGATIVE) 01/13/22 18:05 Urine Bacteria Trace /HPF (NEGATIVE) 01/13/22 18:05 Ur Culture Indicated? No/not indicated 01/13/22 18:05 SARS CoV-2 RNA Rapid DAR[place]ING Negative (NEGATIVE) 01/13/22 14:00 - Assessment and Plan 1: recurrent large perianal abscess . s/p I&D . Pt could be D/C on oral ABT . to follow in 2 weeks . future colonoscopy . - Problem Patient Problems: Patient Problems Perirectal cellulitis (Acute) K61.1 Cellulitis of buttock (Acute) L03.317 Fever (Acute) R50.9 Intractable pain (Acute) R52
== END 2022-01-16 10:00 | disposition home or self-care (01) | DRG 394 ==
LOC: MED/SURG 13:44 → MERGE 13:44
PROVIDERS: ADMIT Internal Medicine; ATTEND Internal Medicine
DX: R79.82 Elevated C-reactive protein (CRP); L03.317 Cellulitis of buttock; B96.29 Other Escherichia coli [E. coli] as the cause of diseases classified elsewhere; R50.9 Fever, unspecified; K61.1 Rectal abscess; E11.65 Type 2 diabetes mellitus with hyperglycemia; Z78.1 Physical restraint status; Z20.822 Contact with and (suspected) exposure to COVID-19; I10 Essential (primary) hypertension; I25.10 Atherosclerotic heart disease of native coronary artery without angina pectoris